=== PATIENT | female | born 2000 | race American Indian/Alaskan Native ===

== ENCOUNTER 2020-09-11 14:34 | Emergency (ER) | payer SELFPAY ==
[2020-09-11 15:27] VITALS: BP 123/69
--- NOTE | 2020-09-11 15:32 | Emergency Department Report ---
ED General Adult HPI - General Chief complaint: Earache Stated complaint: RAJ EAR PAIN/THROAT PAIN Time Seen by Provider: 09/11/20 15:01 Source: patient Mode of arrival: Ambulatory Limitations: No Limitations - History of Present Illness Initial comments: 20-year-old -Domin[place] female patient presents with complaints of bilateral ear pain, sore throat, and facial pain x1 week. Patient rates her current pain as a 8/10 in severity and states it is worsening since its onset. She states history of tonsillectomy due to recurrent infections. She denies any fever/chills/sweats, cough, headache, or vision changes. Patient also denies any past medical history. - Related Data Previous Rx's Medication Instructions Recorded Last Taken Type Amoxicillin/Potassium Clav 1 each PO BID 10 Days #20 tablet 09/11/20 Unknown Rx [Augmentin 875-125 Tablet] Prednisone [predniSONE 10 mg 10 mg PO .TAPER #1 tab.ds.pk 09/11/20 Unknown Rx (6-Day Pack, 21 Tabs)] Allergies Allergy/AdvReac Type Severity Reaction Status Date / Time No Known Allergies Allergy Unverified 09/11/20 15:24 ED Review of Systems ROS: Stated complaint: RAJ EAR PAIN/THROAT PAIN Other details as noted in HPI Constitutional: denies: chills, diaphoresis, fever, malaise, weakness ENT: ear pain, throat pain, congestion. denies: dental pain Respiratory: denies: cough, shortness of breath Gastrointestinal: denies: nausea Hematological/Lymphatic: swollen glands (neck) ED Past Medical Hx - Past Medical History Previous Medical History?: No - Surgical History Past Surgical History?: Yes Additional Surgical History: tonsillectomy - Medications Home Medications: Home Medications Medication Instructions Recorded Confirmed Last Taken Type Amoxicillin/Potassium Clav 1 each PO BID 10 Days #20 tablet 09/11/20 Unknown Rx [Augmentin 875-125 Tablet] Prednisone [predniSONE 10 mg 10 mg PO .TAPER #1 tab.ds.pk 09/11/20 Unknown Rx (6-Day Pack, 21 Tabs)] ED Physical Exam - General Limitations: No Limitations General appearance: alert, in no apparent distress - Head Head exam: Present: atraumatic, normocephalic - Eye Eye exam: Present: normal appearance. Absent: scleral icterus - ENT ENT exam: Present: normal exam, normal orophraynx, TM's normal bilaterally, normal external ear exam, other (Bilateral maxillary sinus tenderness to palpation noted without overlying erythema) - Neck Neck exam: Present: normal inspection, full ROM. Absent: lymphadenopathy - Respiratory Respiratory exam: Present: normal lung sounds bilaterally. Absent: respiratory distress - Cardiovascular Cardiovascular Exam: Present: regular rate, normal rhythm - Neurological Exam Neurological exam: Present: alert, oriented X3, normal gait - Psychiatric Psychiatric exam: Present: normal affect, normal mood - Skin Skin exam: Present: warm, dry, intact, normal color. Absent: rash, cyanosis, diaphoretic ED Course Vital Signs 09/11/20 15:25 Temperature 97.5 F L Pulse Rate 95 H Respiratory 16 Rate Blood Pressure 123/69 O2 Sat by Pulse 97 Oximetry ED Medical Decision Making - Medical Decision Making 20-year-old -Domin[place] female patient presents with complaints of bilateral ear pain, sore throat, and facial pain x1 week. Patient rates her current pain as a 8/10 in severity and states it is worsening since its onset. She states history of tonsillectomy due to recurrent infections. She denies any fever/chills/sweats, cough, headache, or vision changes. Patient also denies any past medical history. Given duration of symptoms and that symptoms are worsening, will treat for acute bacterial sinusitis with Augmentin and prednisone. Her vitals are normal, she is well-appearing, she is stable for discharge home peer recommend follow-up with primary care provider in 3 to 5 days. Strict return precautions were discussed in detail with patient who verbalizes understanding. Critical care attestation.: If time is entered above; I have spent that time in minutes in the direct care of this critically ill patient, excluding procedure time. ED Disposition Clinical Impression: Acute bacterial sinusitis Disposition: DC-01 TO HOME OR SELFCARE Is pt being admited?: No Condition: Stable Instructions: Sinusitis, Adult Prescriptions: Amoxicillin/Potassium Clav [Augmentin 875-125 Tablet] 1 each PO BID 10 Days #20 tablet Prednisone [predniSONE 10 mg (6-Day Pack, 21 Tabs)] 10 mg PO .TAPER #1 tab.ds.pk Referrals: [facility] [place] [Provider Group] - 3-5 Days
== END 2020-09-11 19:00 | disposition home or self-care (01) ==
LOC: ED 14:34
DX: J01.80 Other acute sinusitis (principal); B96.89 Other specified bacterial agents as the cause of diseases classified elsewhere; Z79.899 Other long term (current) drug therapy; Z98.890 Other specified postprocedural states
CPT/HCPCS: 99281